=== PATIENT | male | born 1945 | race Caucasian/White ===

== ENCOUNTER 2022-01-27 15:21 | Inpatient (IN) ==
[2022-01-27] MEDS ORDERED: IOPAMIDOL 100 ML BOTTLE IV ONE (15:22)
[2022-01-27] MEDS ORDERED: 0.9 % SODIUM CHLORIDE 1,000 ML IV ONE ×3 (15:49→22:34)
[2022-01-27] MEDS ORDERED: ONDANSETRON 4 MG/2 ML VIAL IV ONE ×2 (15:49→20:38)
[2022-01-27 16:10] LABS: POC Calcium, Ionized 1.89 (1.16-1.32); POC Creatinine 1.7 (0.6-1.2); POC Potassium 4.3 (3.3-5.1)
--- NOTE | 2022-01-27 16:27 | XRay Report ---
INDICATION: constipation TECHNIQUE: Supine abdomen. COMPARISON: Previous CT scan dated 12/27/2021. Previous spot films dated 12/30/2021 FINDINGS:There is a left ureteral stent. This has changed in position since previous spot films during placement. The distal tip of the stent catheter is now projected over the sacrum, cephalad to the prior position. This may be within the distal left ureter rather than in the urinary bladder. The course of the left ureteral stent is markedly tortuous. Bowel gas pattern is unremarkable. No other focal abnormality IMPRESSION: 1. Left ureteral stent. Distal portion of the stent is cephalad to the expected location within the deep pelvis 2. Position has changed since previous spot films demonstrated 12/30/2021 Interpreted and Authenticated by: Toan Sheikh 01/27/22
[2022-01-27 16:38] LABS: Basophils # (Auto) 0.06 K/mcL (0.00-0.30); Basophils % (Auto) 0.6 % (0.0-2.0); Eosinophils # (Auto) 0.09 K/mcL (0.00-0.70); Eosinophils % (Auto) 0.8 % (0.0-7.0); Hematocrit 37.7 % (40.1-51.0); Hemoglobin 13.6 g/dL (13.7-17.5); Lymphocytes % (Auto) 9.2 % (15.5-49.0); Mean Cell Volume 83.2 fL (80.0-100.0); Mean Corpuscular HGB Conc 36.1 g/dL (31.0-36.0); Mean Platelet Volume 9.6 fL (7.4-10.4); Monocytes # (Auto) 0.95 K/mcL (0.10-0.90); Monocytes % (Auto) 8.8 % (1.0-12.0); Neutrophils % (Auto) 79.9 % (38.0-78.0); Platelet Count 255 K/mcL (140-440); RBC 4.53 M/mcL (4.63-6.08); Red Cell Distribution Width 12.6 % (11.5-14.5); WBC 10.9 K/mcL (4.5-11.0)
[2022-01-27] MEDS ORDERED: fentaNYL 25 MCG PATCH TOPICAL ONE (17:27)
[2022-01-27] MEDS ORDERED: morphine 4 MG/ML VIAL IV ONE (17:28)
[2022-01-27] MEDS ORDERED: METHYLNALTREXONE BROMIDE 12 MG/0.6 ML SYRINGE SC SCH (17:30)
--- NOTE | 2022-01-27 18:31 | Emergency Department Note ---
HPI General Chief complaint: Weakness Stated complaint: N/V Time Seen by Provider: 01/27/22 15:38 Source: family Mode of arrival: wheelchair Limitations: no limitations History of Present Illness HPI Narrative: This a 77-year-old male patient who presents with intractable nausea and vomiting over the last week, dehydration, and abdominal pain. 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 He underwent a cystoscopy and placement of a left ureteral stent on 12/30, and he has surgery scheduled with Dr. Crespo to remove the kidney and ureter on 02/06/2022. Patient states that he is been having abdominal pain since early December. He does have frequent urination, but no tevin hematuria or dysuria. His abdominal pain has been gradually worsening over the last few weeks and he has been increasing his hydrocodone from 5 mg to 7.5 mg to 10 mg every 4 hours for the past week. He has not had a bowel movement for 3 days and has been taking a regular bowel regimen 3 times daily. He is passing flatus. He denies F/C/S. He denies previous abdominal surgeries. Related Data Home Medications Medication Instructions Recorded Confirmed multivitamin 1 tab-cap PO QDAY 02/04/17 01/27/22 cetirizine [24Hour Allergy] 1 tab PO QDAY 02/14/21 01/27/22 alpha lipoic acid 600 mg capsule 600 mg PO QAM 12/30/21 01/27/22 [id number] 250 1 tab PO ONCE PRN HEADACHES 12/30/21 01/27/22 mg-250 mg-65 mg tablet (Excedrin Extra Strength) magnesium 1 tab PO DAILY 12/30/21 01/27/22 Previous Rx's Medication Instructions Recorded tamsulosin 0.4 mg capsule 0.8 mg PO QHS #180 caps 11/26/21 metoprolol tartrate 25 mg tablet 25 mg PO BID #180 tabs 12/08/21 omeprazole 20 mg capsule,delayed 20 mg PO QAM #90 caps 12/08/21 release simvastatin 10 mg tablet 10 mg PO QHS #90 tabs 12/08/21 hydrocodone 10 mg-acetaminophen 1 tab PO Q6H PRN pain #12 tabs 01/26/22 325 mg tablet fentanyl 25 mcg/hr transdermal 1 patch transdermal Q72H #5 ea 01/27/22 patch hydrocodone 5 mg-acetaminophen 325 1 tab PO Q4H PRN pain #30 tabs 01/27/22 mg tablet Allergies Allergy/AdvReac Type Severity Reaction Status Date / Time No Known Drug Allergies Allergy Verified 01/27/22 15:25 Review of Systems ROS ROS Narrative: Narrative: All systems ED: reviewed and negative except as stated. [facility] Narrative Patient History Narrative: Narrative: Medical/Surgical/Family History All Active Problems Cancer associated pain (Acute) Constipation due to opioid therapy (Acute) Intractable nausea and vomiting (Acute) Hyponatremia (Chronic) Arthritis of both hands (Chronic) Low back pain (Chronic ~2003) Hypertension, essential (Chronic) Borderline hyperlipidemia (Chronic ~2011) Major depressive disorder (Chronic) Anxiety (Chronic) Right leg pain (Chronic) Right leg numbness (Chronic) Right leg weakness (Chronic) HLD (hyperlipidemia) (Chronic) Insomnia (Chronic) Chronic radicular cervical pain (Chronic) Hematuria (Acute) Medicare annual wellness visit, initial (Acute) Radiculopathy, cervical region (Acute) Hematuria (Acute) Eustachian tube dysfunction (Acute) History of colonic polyps (Acute) TMJ (sprain of temporomandibular joint) (Acute) Eczema (Acute) Hemorrhagic otitis externa of right ear (Acute) Medicare annual wellness visit, subsequent (Acute) BPH w urinary obs/LUTS (Acute) Elevated serum creatinine (Acute) Hematuria (Acute) Ureteral mass (Acute) Left lateral abdominal pain (Acute) Hydronephrosis of left kidney (Acute) Ureteral cancer (Acute) Acute kidney injury (Acute) Hepatitis B surface antigen positive (Acute) Suprapubic pain (Acute) Loss of appetite (Acute) Medical History Arthritis of both hands Borderline hyperlipidemia (~2011) Hemorrhagic otitis externa of right ear Hypertension, essential Low back pain (~2003) Work comp. related Medicare annual wellness visit, initial Medicare annual wellness visit, subsequent Right leg numbness Right leg pain Right leg weakness Surgical History H/O colonoscopy H/O right knee surgery (~1984) Family History Sister Breast cancer Unknown Hypertension, essential Social History Smoking Status: Never smoker Alcohol Intake Frequency: does not drink Substance Use: does not use Exam Narrative Narrative: General: AOx3, NAD, painful appearing. Pleasant and conversant. HEENT: PERRL, EOMI, normocephalic. Dry mucous membranes. Normal facies and normal dentition. Chest: Symmetric, no pain to palpation Respiratory: Lungs clear to auscultation bilaterally. No respiratory distress. Unlabored breathing. Heart: Regular rate and rhythm, no murmurs/clicks/rubs. Abdomen: Suprapubic discomfort, nondistended, hypoactive bowel tones. No organomegaly. Extremities: Warm and well perfused. No edema. DP 2+ bilaterally. No venous stasis. Neuro: No focal deficits. Cranial nerves II-XII grossly normal. Skin: Warm dry, no rashes or lesions, no cyanosis. 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 I have discussed this case with his primary care provider, Dr. Hines, who agrees that the patient has poorly controlled pain. We discussed starting a 25 mcg fentanyl patch with hydrocodone for breakthrough pain. I have ordered the fentanyl patch and we will place it here today. In addition, I have reached out to clinical social work to make a referral for home health. Patient's son is his primary caregiver and he will be leaving out of town on for a 4-day trip to [place]. There is some concern about caregiver needs when he is gone given that his father has had worsening symptoms in the last week. Time: 07:10 Reevaluation #3: Patient started having chest pain while ambulating back to the bathroom. EKG shows normal sinus rhythm with rate of [address] segment deviations to suggest ischemia. He does have a first-degree AV block noted. QTC is 468 ms. A traoc-sk-jebo troponin is 0.01. The plan will be to trend this. Time: 08:20 Additional Reevaluation(s): Patient's chest pain is completely resolved. IV Dilaudid has been effective in treating his pain and he is no longer having significant suprapubic pain. Nausea has resolved. Vital signs are currently stable. Vital Signs Vital signs: Vital Signs Temperature 97.3 F 01/27/22 15:22 Pulse Rate 83 01/27/22 15:22 Respiratory Rate 17 01/27/22 15:22 Blood Pressure 131/70 01/27/22 15:22 Pulse Oximetry (%) 98 01/27/22 15:22 Oxygen Delivery Method 01/27/22 15:22 Temperature 97.9 F 01/28/22 02:48 Pulse Rate 71 01/28/22 02:48 Respiratory Rate 20 01/28/22 02:48 Blood Pressure 133/67 01/28/22 02:48 Pulse Oximetry (%) 92 01/28/22 02:48 Oxygen Delivery Method 01/28/22 02:48 [facility] MDM Narrative Medical decision making narrative: Cancer pain Intractable nausea and vomiting Dehydration Ureteral carcinoma Severe left hydronephrosis with stent placement Hyponatremia Hypercalcemia Patient's pain is currently controlled after placement of his fentanyl patch and 1 mg of IV Dilaudid. He is no longer endorsing chest pain or nausea. He has been given 2 L of IV fluids. Bladder scans have showed low post residual void. CT scan of the abdomen pelvis with and without contrast shows suspicious metastatic lesions to his lungs. I have informed the patient of these results. The patient's troponin is trending and is ordered for a 10 PM draw. I have signed the patient out to Dr. Kimbrough at change of shift, please see his note for further details and plan of care. Lab Data Result diagrams: 01/27/22 15:59 Labs: Lab Results 01/27/22 01/27/22 01/27/22 Range/Units 15:59 16:06 19:40 WBC 10.9 (4.5-11.0) K/mcL RBC 4.53 L (4.63-6.08) M/mcL Hgb 13.6 L (13.7-17.5) g/dL Hct 37.7 L (40.1-51.0) % POC Hct 39.0 L (41-55) MCV 83.2 (80.0-100.0) fL MCH 30.0 (26.0-34.0) pg MCHC 36.1 H (31.0-36.0) g/dL RDW 12.6 (11.5-14.5) % Plt Count 255 (140-440) K/mcL MPV 9.6 (7.4-10.4) fL Immature Gran % (Auto) 0.7 H (0.0-0.5) % Neut % (Auto) 79.9 H (38.0-78.0) % Lymph % (Auto) 9.2 L (15.5-49.0) % Faulk % (Auto) 8.8 (1.0-12.0) % Eos % (Auto) 0.8 (0.0-7.0) % Baso % (Auto) 0.6 (0.0-2.0) % Lymph # (Auto) 1.00 L (1.50-4.80) K/mcL Faulk # (Auto) 0.95 H (0.10-0.90) K/mcL Eos # (Auto) 0.09 (0.00-0.70) K/mcL Baso # (Auto) 0.06 (0.00-0.30) K/mcL Immature Gran # 0.08 H (0.00-0.05) K/mcl Absolute Neutrophils 8.75 H (1.80-8.00) K/mcL POC Sodium 125 L (133-145) POC Potassium 4.3 (3.3-5.1) POC Chloride 93 L (96-108) POC Total CO2 23.0 (22-30) POC BUN 24 H (6-20) POC Creatinine 1.7 H (0.6-1.2) POC Glucose 135 H (70-105) Osmolality (280-300) mOSM/kg POC WB Ioniz Calcium 1.89 H* (1.16-1.32) TSH (0.27-5.01) uIU/mL POC Troponin I 0.01 L (0.02-0.08) 01/27/22 01/27/22 01/27/22 Range/Units 20:10 22:17 22:22 WBC (4.5-11.0) K/mcL RBC (4.63-6.08) M/mcL Hgb (13.7-17.5) g/dL Hct (40.1-51.0) % POC Hct 36.0 L (41-55) MCV (80.0-100.0) fL MCH (26.0-34.0) pg MCHC (31.0-36.0) g/dL RDW (11.5-14.5) % Plt Count (140-440) K/mcL MPV (7.4-10.4) fL Immature Gran % (Auto) (0.0-0.5) % Neut % (Auto) (38.0-78.0) % Lymph % (Auto) (15.5-49.0) % Faulk % (Auto) (1.0-12.0) % Eos % (Auto) (0.0-7.0) % Baso % (Auto) (0.0-2.0) % Lymph # (Auto) (1.50-4.80) K/mcL Faulk # (Auto) (0.10-0.90) K/mcL Eos # (Auto) (0.00-0.70) K/mcL Baso # (Auto) (0.00-0.30) K/mcL Immature Gran # (0.00-0.05) K/mcl Absolute Neutrophils (1.80-8.00) K/mcL POC Sodium 126 L (133-145) POC Potassium 4.2 (3.3-5.1) POC Chloride 95 L (96-108) POC Total CO2 24.0 (22-30) POC BUN 26 H (6-20) POC Creatinine 1.7 H (0.6-1.2) POC Glucose 133 H (70-105) Osmolality 273 L (280-300) mOSM/kg POC WB Ioniz Calcium 1.76 H* (1.16-1.32) TSH 1.50 (0.27-5.01) uIU/mL POC Troponin I 0.02 (0.02-0.08) Discharge Plan Patient/Caregiver Discharge Instructions Pt seen by NITROGEN OPERATOR/PA only: Yes Clinical Impression: Cancer associated pain, Constipation due to opioid therapy, Intractable nausea and vomiting Patient Disposition: Xfer As Outpt/Obs ([facility]) Condition: Fair Discharge Date/Time: 01/27/22 23:28
--- NOTE | 2022-01-27 18:38 | Cat Scan Report ---
INDICATION: abd pain COMPARISON: Comparison examinations dated 12/27/2021, 12/23/2021 TECHNIQUE: Pre and postcontrast axial images were obtained through the abdomen and pelvis. Sagittally and coronally reformatted images. 90 mL contrast material injected intravenously. Precontrast, portal venous phase, and delayed phase imaging FINDINGS: Lung bases:Lung bases are abnormal. There is bilateral lower lobe bronchiectasis which is chronic. There are multiple noncalcified pulmonary parenchymal nodules at the lung bases, left worse than right. Findings are suspicious for metastases. Largest nodule measures 9 mm in the left lower lobe. This is identified on image 7 and is mildly spiculated. There is a 2 cm mass at the left base. This appears to be mediastinal and is consistent with a focal lymph node. There is a low density center consistent with necrosis. There is a second similar-appearing paraesophageal density which measures 15 mm identified on image 17/206. There is a 9 mm paraesophageal lymph node on image 35/ There is a pleural-based 14 mm density at the right lung base, image 27. These findings are suspicious for metastases and have developed since 12/27/2021 Liver:Low-density liver consistent with hepatic steatosis. No focal mass. Liver contour is smooth Gallbladder, bilary:Gallbladder is distended. No calcified gallstones. No pericholecystic fluid. No dilated bile ducts Spleen:No splenomegaly. Normal enhancement of splenic and portal veins Pancreas:No pancreatic mass. No peripancreatic abnormality Adrenal glands:Negative Kidneys,ureters,bladder:Negative right kidney. No hydronephrosis. No solid or cystic mass. There is left hydronephrosis. Left renal pelvis is markedly dilated. The left ureter is tortuous and dilated. There is a left ureteral stent in place. Proximal portion of the stent is within the left renal pelvis. Distal portion is in the ureter at the S2 level. This is approximately 10 cm proximal to the urinary bladder ureter is markedly dilated to this level. There is abnormal soft tissue density suspicious for transitional cell carcinoma of the distal left ureter. There may be a small polypoid lesion at the left ureteral trigone, also suspicious for malignancy. Gastrointestinal:No detectable colonic mass. There is no diverticulitis. Negative small bowel. No mechanical small bowel obstruction. No bowel wall thickening. No focal abnormality. Negative stomach and duodenum. No focal abnormality. Appendix: The appendix is negative Vascular:Normal abdominal aorta. No abdominal aortic aneurysm. Superior mesenteric artery and celiac trunk are normal. Inferior mesenteric artery is normally opacified Lymphatic:Extensive retroperitoneal, para-aortic lymphadenopathy. There is retrocrural para-aortic adenopathy. There is a 14 mm left iliac chain node. Iliac chains are otherwise negative. No definite pathologic inguinal adenopathy Mesentery, peritoneum:No intra-abdominal abscess. No free fluid Reproductive:Prostate is not significantly enlarged Musculoskeletal:No lumbar compression fractures. There is degenerative disc disease No anterior abdominal wall or inguinal hernia. IMPRESSION: 1. Left ureteral stent with its distal tip in the distal left ureter, approximately 10 cm from the bladder 2. Severe left hydronephrosis and hydroureter. Findings consistent with distal left ureteral mass. Possible small mass at the left ureteral trigone. Findings are consistent with transitional cell carcinoma 3. Multiple noncalcified parenchymal nodules in both lung bases. Findings are new and consistent with metastases. 4. Inferior mediastinal and paraesophageal adenopathy. Small pleural based mass at the left lung base. Findings are suspicious for metastases 5. Extensive retroperitoneal adenopathy, new. This is para-aortic and retrocrural. There is a single left iliac chain node The exam was performed using radiation dose optimization techniques including, but not limited to, automated exposure control, adjustment of the mA and/or kV according to patient size and use of iterative reconstruction technique. Interpreted and Authenticated by: Toan Sheikh 01/27/22
[2022-01-27] MEDS ORDERED: HYDROmorphone 1 MG/ML SYRINGE IV ONE (19:25)
[2022-01-27] MEDS ORDERED: ACETAMINOPHEN 1,000 MG/100 ML BAG IV ONE (19:51)
[2022-01-27 20:48] LABS: Thyroid Stimulating Hormone 1.5 uIU/mL (0.27-5.01)
--- NOTE | 2022-01-27 21:34 | Emergency Department Note ---
Course Course Course Narrative: Patient signed out to me pending delta troponin. Delta troponin is negative. Patient was given IV fluids and his sodium was rechecked it is slightly improving. I suspect his hyponatremia is from decreased oral intake. Patient's pain did improve with IV pain medications. Patient's calcium is also found to be elevated. His electrolyte disturbances could be contributing to his overall weakness. Patient lives alone this point in time he is not safe to take care of himself and he expresses that this and family expresses the same concerns. Patient will greatly benefit from IV hydration and transition from IV pain medications to p.o. medications. Vital Signs Vital signs: Vital Signs Temperature 97.3 F 01/27/22 15:22 Pulse Rate 83 01/27/22 15:22 Respiratory Rate 17 01/27/22 15:22 Blood Pressure 131/70 01/27/22 15:22 Pulse Oximetry (%) 98 01/27/22 15:22 Oxygen Delivery Method 01/27/22 15:22 Temperature 97.3 F 01/27/22 15:22 Pulse Rate 80 01/27/22 23:00 Respiratory Rate 12 01/27/22 22:31 Blood Pressure 134/58 01/27/22 23:00 Pulse Oximetry (%) 95 01/27/22 23:00 Oxygen Delivery Method 01/27/22 15:22 MDM MDM Narrative Medical decision making narrative: Narrative: Lab Data Result diagrams: 01/27/22 15:59 Labs: Lab Results 01/27/22 01/27/22 01/27/22 Range/Units 15:59 16:06 19:40 WBC 10.9 (4.5-11.0) K/mcL RBC 4.53 L (4.63-6.08) M/mcL Hgb 13.6 L (13.7-17.5) g/dL Hct 37.7 L (40.1-51.0) % POC Hct 39.0 L (41-55) MCV 83.2 (80.0-100.0) fL MCH 30.0 (26.0-34.0) pg MCHC 36.1 H (31.0-36.0) g/dL RDW 12.6 (11.5-14.5) % Plt Count 255 (140-440) K/mcL MPV 9.6 (7.4-10.4) fL Immature Gran % (Auto) 0.7 H (0.0-0.5) % Neut % (Auto) 79.9 H (38.0-78.0) % Lymph % (Auto) 9.2 L (15.5-49.0) % Camp % (Auto) 8.8 (1.0-12.0) % Eos % (Auto) 0.8 (0.0-7.0) % Baso % (Auto) 0.6 (0.0-2.0) % Lymph # (Auto) 1.00 L (1.50-4.80) K/mcL Camp # (Auto) 0.95 H (0.10-0.90) K/mcL Eos # (Auto) 0.09 (0.00-0.70) K/mcL Baso # (Auto) 0.06 (0.00-0.30) K/mcL Immature Gran # 0.08 H (0.00-0.05) K/mcl Absolute Neutrophils 8.75 H (1.80-8.00) K/mcL POC Sodium 125 L (133-145) POC Potassium 4.3 (3.3-5.1) POC Chloride 93 L (96-108) POC Total CO2 23.0 (22-30) POC BUN 24 H (6-20) POC Creatinine 1.7 H (0.6-1.2) POC Glucose 135 H (70-105) Osmolality (280-300) mOSM/kg POC WB Ioniz Calcium 1.89 H* (1.16-1.32) TSH (0.27-5.01) uIU/mL POC Troponin I 0.01 L (0.02-0.08) 01/27/22 01/27/22 01/27/22 Range/Units 20:10 22:17 22:22 WBC (4.5-11.0) K/mcL RBC (4.63-6.08) M/mcL Hgb (13.7-17.5) g/dL Hct (40.1-51.0) % POC Hct 36.0 L (41-55) MCV (80.0-100.0) fL MCH (26.0-34.0) pg MCHC (31.0-36.0) g/dL RDW (11.5-14.5) % Plt Count (140-440) K/mcL MPV (7.4-10.4) fL Immature Gran % (Auto) (0.0-0.5) % Neut % (Auto) (38.0-78.0) % Lymph % (Auto) (15.5-49.0) % Camp % (Auto) (1.0-12.0) % Eos % (Auto) (0.0-7.0) % Baso % (Auto) (0.0-2.0) % Lymph # (Auto) (1.50-4.80) K/mcL Camp # (Auto) (0.10-0.90) K/mcL Eos # (Auto) (0.00-0.70) K/mcL Baso # (Auto) (0.00-0.30) K/mcL Immature Gran # (0.00-0.05) K/mcl Absolute Neutrophils (1.80-8.00) K/mcL POC Sodium 126 L (133-145) POC Potassium 4.2 (3.3-5.1) POC Chloride 95 L (96-108) POC Total CO2 24.0 (22-30) POC BUN 26 H (6-20) POC Creatinine 1.7 H (0.6-1.2) POC Glucose 133 H (70-105) Osmolality 273 L (280-300) mOSM/kg POC WB Ioniz Calcium 1.76 H* (1.16-1.32) TSH 1.50 (0.27-5.01) uIU/mL POC Troponin I 0.02 (0.02-0.08) Discharge Plan Patient/Caregiver Discharge Instructions Pt seen by LINEN WORKER/PA only: Yes Clinical Impression: Cancer associated pain, Constipation due to opioid therapy, Intractable nausea and vomiting Instructions: Constipation (DC), Pain Management (ED), Acute Nausea and Vomiting (ED), Opioid Safety (ED) Activity Restrictions/Additional Instructions: You were seen and evaluated for acute nausea and vomiting and uncontrolled pain secondary to your new diagnosis of urological cancer. In addition, I think that you are having symptoms related to narcotics. Nausea, vomiting, and constipatio n are all side effects of narcotics. You were given a medication to counteract opioid-induced constipation here. You were also given antinausea medication to help with the effects of your narcotics. I discussed your uncontrolled pain with Dr. Hines who agreed that starting a fentanyl patch to better control your pain is appropriate. You are placed on a 25 mcg patch of fentanyl, which is supposed to be changed every 3 days. In addition, you were given a prescription for hydrocodone 5/325 mg tabs that you can take as needed for breakthrough pain every 4 hours. I advised that you continue with your bowel regimen and try to stay hydrated as this will prevent constipation. I recommend taking MiraLAX 17 g daily from here on out to prevent worsening constipation. You can hold this if you are having loose stools. If you continue to have nausea and vomiting and poorly controlled pain then you would need to return to the ER for reevaluation. I have made referral to home health nursing so that they can check in on you over the next week to assure that your pain is controlled and you are staying hydrated. They would likely follow with you after your surgery. Patient Disposition: Xfer As Outpt/Obs ([facility]) Condition: Fair Follow up with: Toan Hines DO [Primary Care Provider] - Prescriptions: New fentanyl 25 mcg/hr patch 72 hour 1 patch transdermal Q72H Qty: 5 0RF hydrocodone-acetaminophen 5-325 mg tablet 1 tab PO Q4H PRN (Reason: pain) Qty: 30 0RF Rx Instructions: Take 1-2 tabs every 4 hours for breakthrough pain No Action simvastatin 10 mg tablet 10 mg PO QHS Qty: 90 3RF omeprazole 20 mg capsule,delayed release(DR/EC) 20 mg PO QAM Qty: 90 3RF metoprolol tartrate 25 mg tablet 25 mg PO BID Qty: 180 3RF hydrocodone-acetaminophen 10-325 mg tablet 1 tab PO Q6H PRN (Reason: pain) Qty: 12 0RF multivitamin tablet 1 tab-cap PO QDAY cetirizine [24Hour Allergy] 1 tab PO QDAY tamsulosin 0.4 mg capsule 0.8 mg PO QHS Qty: 180 1RF magnesium Tablet 1 tab PO DAILY alpha lipoic acid 600 mg Capsule 600 mg PO QAM Excedrin Extra Strength 250-250-65 mg Tablet 1 tab PO ONCE PRN (Reason: HEADACHES)
[2022-01-27 22:27] LABS: POC Calcium, Ionized 1.76 (1.16-1.32); POC Creatinine 1.7 (0.6-1.2); POC Potassium 4.2 (3.3-5.1)
[2022-01-27] MEDS: 0.9 % SODIUM CHLORIDE 1,000 ML IV SCH (23:52)
[2022-01-28] MEDS: HYDROmorphone 0.5 MG/0.5 ML SYRINGE IV PRN ×11 (00:15→23:21)
[2022-01-28 00:27] LABS: Appearance,Urine CLEAR (Clear); Bilirubin,Urine Negative (Negative); Color,Urine YELLOW; Culture Indicated,Urine No; Glucose,Urine (UA) Negative (Negative); Ketones,Urine 5 mg/dL (Negative); Leukocyte Esterase,Urine Negative /uL (Negative); Nitrate,Urine Negative (Negative); Protein,Urine Negative (Negative); Specific Gravity,Urine 1.033 (1.000-1.035); Urine Blood 0.03 mg/dL (Negative); Urine RBC 8 /hpf (0-3); Urine Squamous Epithelial Cell < 1 /hpf (0-4); Urine WBC 3 /hpf (0-4); Urobilinogen,Urine Negative
[2022-01-28 00:41] LABS: Osmolality,Urine 409 mOSM/kg (80-1000); Sodium, Urine Random 41 mmol/L
[2022-01-28] MEDS: 0.9 % SODIUM CHLORIDE 1,000 ML IV SCH (05:04)
[2022-01-28] MEDS ORDERED: BISACODYL 10 MG SUPP.RECT PR PRN (07:43)
[2022-01-28] MEDS ORDERED: MAGNESIUM HYDROXIDE 30 ML ORAL.SUSP PO PRN (07:43)
[2022-01-28] MEDS ORDERED: ONDANSETRON 4 MG/2 ML VIAL IV PRN (07:43)
[2022-01-28] MEDS: DOCUSATE SODIUM 100 MG CAPSULE PO SCH ×2 (08:38→20:08)
[2022-01-28] MEDS: ENOXAPARIN 40 MG/0.4 ML SYRINGE SQ SCH (08:38)
--- NOTE | 2022-01-28 09:49 | EKG ---
[facility] Test Date: 2022-01-27 Pat Name: Joshua Lynch Department: ED Room: Gender: Male Assistant Restaurant General Manager: JOSE G : 1945 Requested By: Sho Almeida Order Number: [id number] Reading MD: Toan Goldman M.D. Measurements Intervals [place] Rate: 81 P: 30 MO: 206 QRS: -6 QRSD: 91 T: 16 QT: 403 QTc: 468 Interpretive Statements Sinus rhythm Electronically Signed On 01-28-2022 9:49:03 PDT by Toan Goldman M.D. /store/M0/[id number]
[2022-01-28] MEDS: LACTATED RINGERS 1,000 ML IV SCH ×2 (10:18→23:21)
--- NOTE | 2022-01-28 11:30 | Internal Med History&Physical ---
HPI History of Present Illness Patient information: Note initiated : 01/28/22 at 11:23 am Service Date, if different from initiated Date: [] Patient: Joshua Lynch 77 y/o M admitted on 01/28/22 for N/V. Chief Complaint: [Intractable pain] Chief complaint: Pain History of present illness: Mr. Lynch is a 77 year old M with a past medical history significant for hypertension, hyperlipidemia, and BPH who presents to the hospital with 2-month history of progressive pain that has now become intractable. The patient states that he has been battling with abdominal and groin discomfort since beginning of December. Unfortunately he was not able to see his primary care physician for some time. He was scheduled to see a business operations consultant yesterday who advised him to go to the ER for further management and evaluation of his severe pain. Of note, the patient lives alone. He states that there were some nights where he would hope that he would pass away so he would not have to suffer excruciating pain. He had been followed by outpatient urology and was scheduled for debulking surgery in February that was recently moved up to February 06. However on presentation CT abdomen and pelvis revealed extensive metastatic disease. 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 He is not followed up with an oncologist at this time yet. The hospitalist service was asked admit the patient for pain control. Final Diagnosis Specimen A- URETER, LEFT, BIOPSY: --- HIGH GRADE PAPILLARY UROTHELIAL CARCINOMA, SUSPICIOUS FOR INVASION, SEE COMMENT. --- MUSCULARIS PRESENT. (RLF) EXTERNAL COMMENT The biopsy shows fragmenting high grade papillary urothelial carcinoma in association with smooth muscle (highlighted by immunohistochemistry for pancytokeratin and SM-MHC), suspicious for invasion. Microscopic Description Immunohistochemical studies are performed. Pancytokeratin: Highlights tumor cells. SM-MHC: Muscularis present. Interpretation: Suspicious for invasion. Gross Description Received in formalin labeled left ureter biopsy, are three fragments of elias-caballero tissue ranging in size from less than 0.1 up to 0.1 cm in greatest dimension. Totally submitted in one cassette. (KGW:brian) IMPRESSION: 1. Left ureteral stent with its distal tip in the distal left ureter, approximately 10 cm from the bladder 2. Severe left hydronephrosis and hydroureter. Findings consistent with distal left ureteral mass. Possible small mass at the left ureteral trigone. Findings are consistent with transitional cell carcinoma 3. Multiple noncalcified parenchymal nodules in both lung bases. Findings are new and consistent with metastases. 4. Inferior mediastinal and paraesophageal adenopathy. Small pleural based mass at the left lung base. Findings are suspicious for metastases 5. Extensive retroperitoneal adenopathy, new. This is para-aortic and retrocrural. There is a single left iliac chain node Review of Systems All systems: reviewed and no additional remarkable complaints except as stated Constitutional Constitutional: Present as per HPI EENT Eyes: Present as per HPI; Absent blurry vision Cardiovascular Cardiovascular: Present as per HPI; Absent chest pain, dyspnea, dyspnea on exertion, leg edema or palpatations Respiratory Respiratory: Present as per HPI; Absent cough, dyspnea, dyspnea on exertion, wheezing or stridor Gastrointestinal Gastrointestinal: Present as per HPI and abdominal pain; Absent diarrhea, dysphagia, hematemesis, melena, nausea or vomiting Musculoskeletal Musculoskeletal: Present as per HPI; Absent joint swelling, limited range of motion, muscle cramps, muscle weakness or myalgias Integumentary Integumentary: Present as per HPI; Absent erythema, new lesions, rash or wounds Neurological Neurological: Present as per HPI; Absent abnormal gait, behavioral changes, focal weakness, headache(s), loss of vision, numbness, sensory deficit or syncope Endocrine Endocrine: Absent change in body appearance, fatigue or heat intolerance Hematologic/Lymphatic Hematologic/Lymphatic: Present as per HPI PFSH PFSH All Active Problems (Updated 01/28/22 @ 11:29 by Allan Anderson MD) Cancer associated pain (Acute) Constipation due to opioid therapy (Acute) Intractable nausea and vomiting (Acute) Hyponatremia (Chronic) Arthritis of both hands (Chronic) Low back pain (Chronic ~2004) Hypertension, essential (Chronic) Borderline hyperlipidemia (Chronic ~2012) Major depressive disorder (Chronic) Anxiety (Chronic) Right leg pain (Chronic) Right leg numbness (Chronic) Right leg weakness (Chronic) HLD (hyperlipidemia) (Chronic) Insomnia (Chronic) Chronic radicular cervical pain (Chronic) Hematuria (Acute) Medicare annual wellness visit, initial (Acute) Radiculopathy, cervical region (Acute) Hematuria (Acute) Eustachian tube dysfunction (Acute) History of colonic polyps (Acute) TMJ (sprain of temporomandibular joint) (Acute) Eczema (Acute) Hemorrhagic otitis externa of right ear (Acute) Medicare annual wellness visit, subsequent (Acute) BPH w urinary obs/LUTS (Acute) Elevated serum creatinine (Acute) Hematuria (Acute) Ureteral mass (Acute) Left lateral abdominal pain (Acute) Hydronephrosis of left kidney (Acute) Ureteral cancer (Acute) Acute kidney injury (Acute) Hepatitis B surface antigen positive (Acute) Suprapubic pain (Acute) Loss of appetite (Acute) Medical History Arthritis of both hands Borderline hyperlipidemia (~2011) Hemorrhagic otitis externa of right ear Hypertension, essential Low back pain (~2003) Work comp. related Medicare annual wellness visit, initial Medicare annual wellness visit, subsequent Right leg numbness Right leg pain Right leg weakness Surgical History H/O colonoscopy H/O right knee surgery (~1984) Family History Sister Breast cancer Unknown Hypertension, essential Social History marital status: smoking status: Never smoker alcohol intake frequency: does not drink substance use type: does not use MEDS/ALLERGIES Home Medications and Allergies Home Medications Medication Instructions Recorded Confirmed Type multivitamin 1 tab-cap PO QDAY 02/04/17 01/27/22 History cetirizine [24Hour Allergy] 1 tab PO QDAY 02/14/21 01/27/22 History tamsulosin 0.4 mg capsule 0.8 mg PO QHS #180 caps 11/26/21 01/27/22 Rx metoprolol tartrate 25 mg tablet 25 mg PO BID #180 tabs 12/08/21 01/27/22 Rx omeprazole 20 mg capsule,delayed 20 mg PO QAM #90 caps 12/08/21 01/27/22 Rx release simvastatin 10 mg tablet 10 mg PO QHS #90 tabs 12/08/21 01/27/22 Rx alpha lipoic acid 600 mg capsule 600 mg PO QAM 12/30/21 01/27/22 History aynkpod-epbuxtcssjuzp-kmlqftmf 250 1 tab PO ONCE PRN HEADACHES 12/30/21 01/27/22 History mg-250 mg-65 mg tablet (Excedrin Extra Strength) magnesium 1 tab PO DAILY 12/30/21 01/27/22 History hydrocodone 10 mg-acetaminophen 1 tab PO Q6H PRN pain #12 tabs 01/26/22 01/27/22 Rx 325 mg tablet fentanyl 25 mcg/hr transdermal 1 patch transdermal Q72H #5 ea 01/27/22 Rx patch hydrocodone 5 mg-acetaminophen 325 1 tab PO Q4H PRN pain #30 tabs 01/27/22 Rx mg tablet Allergies Allergy/AdvReac Type Severity Reaction Status Date / Time No Known Drug Allergies Allergy Verified 01/27/22 15:25 EXAM Constitutional Vitals: Temp Pulse Resp BP Pulse Ox O2 Del Method 98.2 F 72 18 146/66 95 01/28/22 08:00 01/28/22 08:00 01/28/22 08:00 01/28/22 08:00 01/28/22 08:00 01/28/22 08:00 General appearance: average body habitus Head Head exam: Present atraumatic, normal inspection and normocephalic Eye Eye exam: Present EOMI, normal appearance and PERRL; Absent conjunctival injection ENT ENT exam: Present normal exam; Absent mucous membranes dry Neck Neck exam: Present full ROM; Absent lymphadenopathy Respiratory Respiratory exam: Present normal respiratory exam and CTAB; Absent decreased breath sounds, respiratory distress or wheezes Cardiovascular Cardiovascular exam: Present normal rate and rhythm and RRR; Absent JVD GI/Abdominal GI/Abdominal exam: Present normal bowel sounds and soft; Absent diminished bowel sounds, distended, guarding, mass, rebound or tenderness Neurological Exam Neurological exam: Present alert, CN II-XII intact and oriented X3 Psychiatric Psychiatric exam: Present normal affect and normal mood Skin Skin exam: Present intact and warm; Absent erythema, pallor, petechiae or rash DATA Data Completed and Pending Labs: Labs from last 24 hours 01/27/22 01/27/22 01/27/22 23:47 23:46 23:45 WBC RBC Hgb Hct POC Hct MCV MCH MCHC RDW Plt Count MPV Immature Gran % (Auto) Neut % (Auto) Lymph % (Auto) [place] % (Auto) Eos % (Auto) Baso % (Auto) Lymph # (Auto) [place] # (Auto) Eos # (Auto) Baso # (Auto) Immature Gran # Absolute Neutrophils POC Sodium POC Potassium POC Chloride POC Total CO2 POC BUN POC Creatinine POC Glucose Osmolality POC WB Ioniz Calcium TSH Urine Color Yellow Urine Appearance Clear Urine pH 6.0 Ur Specific [place] 1.033 Urine Protein Negative Urine Glucose (UA) Negative Urine Ketones 5 A Urine Occult Blood 0.03 Urine Nitrate Negative Urine Bilirubin Negative Urine Urobilinogen Negative Ur Leukocyte Esterase Negative Urine RBC 8 H Urine WBC 3 Ur Squamous Epith Cells < 1 Urine Bacteria None Ur Culture Indicated? No Urine Osmolality 409 Ur Random Creatinine 55.2 Ur Random Sodium 41 POC Troponin I 01/27/22 01/27/22 01/27/22 22:22 22:17 20:10 WBC RBC Hgb Hct POC Hct 36.0 L MCV MCH MCHC RDW Plt Count MPV Immature Gran % (Auto) Neut % (Auto) Lymph % (Auto) [place] % (Auto) Eos % (Auto) Baso % (Auto) Lymph # (Auto) [place] # (Auto) Eos # (Auto) Baso # (Auto) Immature Gran # Absolute Neutrophils POC Sodium 126 L POC Potassium 4.2 POC Chloride 95 L POC Total CO2 24.0 POC BUN 26 H POC Creatinine 1.7 H POC Glucose 133 H Osmolality 273 L POC WB Ioniz Calcium 1.76 H* TSH 1.50 Urine Color Urine Appearance Urine pH Ur Specific [place] Urine Protein Urine Glucose (UA) Urine Ketones Urine Occult Blood Urine Nitrate Urine Bilirubin Urine Urobilinogen Ur Leukocyte Esterase Urine RBC Urine WBC Ur Squamous Epith Cells Urine Bacteria Ur Culture Indicated? Urine Osmolality Ur Random Creatinine Ur Random Sodium POC Troponin I 0.02 01/27/22 01/27/22 01/27/22 19:40 16:06 15:59 WBC 10.9 RBC 4.53 L Hgb 13.6 L Hct 37.7 L POC Hct 39.0 L MCV 83.2 MCH 30.0 MCHC 36.1 H RDW 12.6 Plt Count 255 MPV 9.6 Immature Gran % (Auto) 0.7 H Neut % (Auto) 79.9 H Lymph % (Auto) 9.2 L [place] % (Auto) 8.8 Eos % (Auto) 0.8 Baso % (Auto) 0.6 Lymph # (Auto) 1.00 L [place] # (Auto) 0.95 H Eos # (Auto) 0.09 Baso # (Auto) 0.06 Immature Gran # 0.08 H Absolute Neutrophils 8.75 H POC Sodium 125 L POC Potassium 4.3 POC Chloride 93 L POC Total CO2 23.0 POC BUN 24 H POC Creatinine 1.7 H POC Glucose 135 H Osmolality POC WB Ioniz Calcium 1.89 H* TSH Urine Color Urine Appearance Urine pH Ur Specific [place] Urine Protein Urine Glucose (UA) Urine Ketones Urine Occult Blood Urine Nitrate Urine Bilirubin Urine Urobilinogen Ur Leukocyte Esterase Urine RBC Urine WBC Ur Squamous Epith Cells Urine Bacteria Ur Culture Indicated? Urine Osmolality Ur Random Creatinine Ur Random Sodium POC Troponin I 0.01 L A/P Assessment and plan (1) Cancer associated pain: Status: Acute (2) Constipation due to opioid therapy: Status: Acute (3) Intractable nausea and vomiting: Status: Acute (4) Hematuria: Status: Acute Qualifiers: Hematuria type: gross Qualified Code(s): R31.0 - Gross hematuria (5) Loss of appetite: Status: Acute (6) Suprapubic pain: Status: Acute Narrative A/P Narrative: The patient does have a tissue diagnosis of high-grade papillary urothelial carcinoma. He will need to follow-up with oncology for staging and will require a PET scan. Once staging is confirmed, a treatment plan can be formulated and he can be given a prognosis. It is unclear whether he will require chemotherapy with curative or palliative intent. Surgery will likely have to be delayed. At this time while he is inpatient, we will continue pain control. He has been started on a fentanyl patch and started on IV and oral narcotic analgesics which may be uptitrated. Continue aggressive bowel regimen. PT/OT will follow. Will be important to contact his primary care physician for safe discharge planning. Time Spent With Patient Time: Total time spent is greater than 50% in coordination of care (as documented) at patient's floor/unit and/or counseling patient: Total time spent with greater than 50% in coordination of care (as documented) at patient's floor/unit and/or counseling patient:: 50 - 70 minutes
[2022-01-28] MEDS: ONDANSETRON 4 MG/2 ML VIAL IV PRN ×3 (12:05→20:19)
[2022-01-28] MEDS: 0.9 % SODIUM CHLORIDE 10 ML SYRINGE IV SCH ×2 (12:42→20:08)
--- NOTE | 2022-01-28 16:14 | Urology Consult Note ---
HPI Data of Consult Patient: known to practice within the last 3 years Consult date: 01/28/22 Requesting physician: Allan Anderson Primary Care Provider: Toan Hines DO Consult Narrative Patient Information: Note initiated : 01/28/22 at 4:04 pm Service Date, if different from initiated Date: [] Patient: Joshua Lynch 77 y/o M admitted on 01/28/22 for N/V. Chief Complaint: Joshua is a 77-year-old male who is well-known to me. 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 This was on December 30, 2021. As result of the tumor he has obstruction of the left collecting system and severe left hydronephrosis. Left kidney was filled with either clot or tumor. Left ureteral stent was placed at the time of ureteroscopy on December 31. This initially provided some relief of pain but his pain began to get worse. Joshua was scheduled for a left nephroureterectomy on March 06. Due to his pain removed the surgery up to February 06. Yesterday he presented to the emergency department with decreased appetite and severe pain. CT of the abdomen and pelvis was obtained with and without contrast. This revealed multiple noncalcified pulmonary parenchymal nodules at the lung bases left worse than right. The findings are suspicious for metastatic disease. Largest nodule measured 9 mm in the left lower lobe. There was a 2 cm mass at the left base. This is consistent with a focal lymph node. There is a second similar-appearing paraesophageal density measuring 15 mm on image 17/206. There is also a 9 mm paraesophageal lymph node. These are all suspicious for metastatic disease. There is left hydronephrosis and the left renal pelvis is markedly dilated. Left ureter is tortuous and dilated. There is a left ureteral stent in place. The proximal portion of the stent is within the left renal pelvis. The distal portion is retracted into the left ureter at the level of S2 approximately 10 cm proximal to the left ureterovesical junction. There is extensive retroperitoneal and para-aortic lymphadenopathy. There is retrocrural para-aortic adenopathy. There is a 14 mm left iliac chain node. Iliac chains are otherwise negative. Chief complaint: Left flank pain Reason for consult: Metastatic urothelial carcinoma cc:: CC: Allan Anderson MD Constitutional Constitutional: Present lethargy, malaise, weakness and weight loss Gastrointestinal Gastrointestinal: Present abdominal pain, bloating, early satiety, nausea and vomiting PFSH PFSH All Active Problems Metastatic urothelial carcinoma (Acute) Hyponatremia (Chronic) Cancer associated pain (Acute) Constipation due to opioid therapy (Acute) Intractable nausea and vomiting (Acute) Loss of appetite (Acute) Suprapubic pain (Acute) Acute kidney injury (Acute) Hepatitis B surface antigen positive (Acute) Ureteral cancer (Acute) Arthritis of both hands (Chronic) Low back pain (Chronic ~2003) Hypertension, essential (Chronic) Borderline hyperlipidemia (Chronic ~2011) Major depressive disorder (Chronic) Anxiety (Chronic) Right leg pain (Chronic) Right leg numbness (Chronic) Right leg weakness (Chronic) HLD (hyperlipidemia) (Chronic) Insomnia (Chronic) Chronic radicular cervical pain (Chronic) Hematuria (Acute) Medicare annual wellness visit, initial (Acute) Radiculopathy, cervical region (Acute) Hematuria (Acute) Eustachian tube dysfunction (Acute) History of colonic polyps (Acute) TMJ (sprain of temporomandibular joint) (Acute) Eczema (Acute) Hemorrhagic otitis externa of right ear (Acute) Medicare annual wellness visit, subsequent (Acute) BPH w urinary obs/LUTS (Acute) Elevated serum creatinine (Acute) Hematuria (Acute) Ureteral mass (Acute) Left lateral abdominal pain (Acute) Hydronephrosis of left kidney (Acute) Medical History Arthritis of both hands Borderline hyperlipidemia (~2011) Hemorrhagic otitis externa of right ear Hypertension, essential Low back pain (~2003) Work comp. related Medicare annual wellness visit, initial Medicare annual wellness visit, subsequent Right leg numbness Right leg pain Right leg weakness Surgical History H/O colonoscopy H/O right knee surgery (~1984) Family History Sister Breast cancer Unknown Hypertension, essential Social History marital status: smoking status: Never smoker alcohol intake frequency: does not drink substance use type: does not use MEDS/ALLERGIES Home Medications and Allergies Home Medications Medication Instructions Recorded Confirmed Type multivitamin 1 tab-cap PO QDAY 02/04/17 01/27/22 History cetirizine [24Hour Allergy] 1 tab PO QDAY 02/14/21 01/27/22 History tamsulosin 0.4 mg capsule 0.8 mg PO QHS #180 caps 11/26/21 01/27/22 Rx metoprolol tartrate 25 mg tablet 25 mg PO BID #180 tabs 12/08/21 01/27/22 Rx omeprazole 20 mg capsule,delayed 20 mg PO QAM #90 caps 12/08/21 01/27/22 Rx release simvastatin 10 mg tablet 10 mg PO QHS #90 tabs 12/08/21 01/27/22 Rx alpha lipoic acid 600 mg capsule 600 mg PO QAM 12/30/21 01/27/22 History pflwkta-mcxhvfcmwuopa-xsbkhewy 250 1 tab PO ONCE PRN HEADACHES 12/30/21 01/27/22 History mg-250 mg-65 mg tablet (Excedrin Extra Strength) magnesium 1 tab PO DAILY 12/30/21 01/27/22 History hydrocodone 10 mg-acetaminophen 1 tab PO Q6H PRN pain #12 tabs 01/26/22 01/27/22 Rx 325 mg tablet fentanyl 25 mcg/hr transdermal 1 patch transdermal Q72H #5 ea 01/27/22 Rx patch hydrocodone 5 mg-acetaminophen 325 1 tab PO Q4H PRN pain #30 tabs 01/27/22 Rx mg tablet Allergies Allergy/AdvReac Type Severity Reaction Status Date / Time No Known Drug Allergies Allergy Verified 01/27/22 15:25 Physical Examination Vital Signs Vital signs: Temp Pulse Resp BP Pulse Ox O2 Del Method 97.7 F 100 H 18 131/66 93 01/28/22 12:00 01/28/22 12:00 01/28/22 12:00 01/28/22 12:00 01/28/22 12:00 01/28/22 12:00 General physical appearance General physical exam: well developed, moderate distress and moderate pain Eyes Eye exam: PERRL Head Head exam IM: Present atraumatic and normocephalic Neck Neck exam: trachea midline Respiratory Respiratory exam: normal expansion and normal respiratory effort Abdomen Abdomen: Present soft, bowel sounds and distended Psychiatric Psychiatric: Present oriented to time, oriented to person, oriented to place and speech is normal Results Labs Result diagrams: 01/27/22 15:59 01/29/22 05:33 Labs: Abnormal lab results 01/27/22 01/27/22 01/27/22 Range/Units 15:59 16:06 19:40 RBC 4.53 L (4.63-6.08) M/mcL Hgb 13.6 L (13.7-17.5) g/dL Hct 37.7 L (40.1-51.0) % POC Hct 39.0 L (41-55) MCHC 36.1 H (31.0-36.0) g/dL Immature Gran % (Auto) 0.7 H (0.0-0.5) % Neut % (Auto) 79.9 H (38.0-78.0) % Lymph % (Auto) 9.2 L (15.5-49.0) % Lymph # (Auto) 1.00 L (1.50-4.80) K/mcL [place] # (Auto) 0.95 H (0.10-0.90) K/mcL Immature Gran # 0.08 H (0.00-0.05) K/mcl Absolute Neutrophils 8.75 H (1.80-8.00) K/mcL POC Sodium 125 L (133-145) POC Chloride 93 L (96-108) POC BUN 24 H (6-20) POC Creatinine 1.7 H (0.6-1.2) POC Glucose 135 H (70-105) Osmolality (280-300) mOSM/kg POC WB Ioniz Calcium 1.89 H* (1.16-1.32) Urine Ketones (Negative) mg/dL Urine RBC (0-3) /hpf POC Troponin I 0.01 L (0.02-0.08) 01/27/22 01/27/22 01/27/22 Range/Units 20:10 22:22 23:45 RBC (4.63-6.08) M/mcL Hgb (13.7-17.5) g/dL Hct (40.1-51.0) % POC Hct 36.0 L (41-55) MCHC (31.0-36.0) g/dL Immature Gran % (Auto) (0.0-0.5) % Neut % (Auto) (38.0-78.0) % Lymph % (Auto) (15.5-49.0) % Lymph # (Auto) (1.50-4.80) K/mcL [place] # (Auto) (0.10-0.90) K/mcL Immature Gran # (0.00-0.05) K/mcl Absolute Neutrophils (1.80-8.00) K/mcL POC Sodium 126 L (133-145) POC Chloride 95 L (96-108) POC BUN 26 H (6-20) POC Creatinine 1.7 H (0.6-1.2) POC Glucose 133 H (70-105) Osmolality 273 L (280-300) mOSM/kg POC WB Ioniz Calcium 1.76 H* (1.16-1.32) Urine Ketones 5 A (Negative) mg/dL Urine RBC 8 H (0-3) /hpf POC Troponin I (0.02-0.08) Thyroid panel 01/27/22 Range/Units 20:10 TSH 1.50 (0.27-5.01) uIU/mL Pituitary panel 01/27/22 Range/Units 20:10 TSH 1.50 (0.27-5.01) uIU/mL All other labs normal. Imaging CT scan - abdomen: report reviewed and image reviewed CT scan - pelvis: report reviewed and image reviewed A/P Assessment and plan (1) Metastatic urothelial carcinoma: Status: Acute Plan Joshua is a 77-year-old male who is well-known to me. 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 This was on December 30, 2021. As result of the tumor he has obstruction of the left collecting system and severe left hydronephrosis. Left kidney was filled with either clot or tumor. Left ureteral stent was placed at the time of ureteroscopy on December 31. This initially provided some relief of pain but his pain began to get worse. Joshua was scheduled for a left nephroureterectomy on March 06. Due to his pain removed the surgery up to February 06. Yesterday he presented to the emergency department with decreased appetite and severe pain. CT of the abdomen and pelvis was obtained with and without contrast. This revealed multiple noncalcified pulmonary parenchymal nodules at the lung bases left worse than right. The findings are suspicious for metastatic disease. Largest nodule measured 9 mm in the left lower lobe. There was a 2 cm mass at the left base. This is consistent with a focal lymph node. There is a second similar-appearing paraesophageal density measuring 15 mm on image 17/206. There is also a 9 mm paraesophageal lymph node. These are all suspicious for metastatic disease. There is left hydronephrosis and the left renal pelvis is markedly dilated. Left ureter is tortuous and dilated. There is a left ureteral stent in place. The proximal portion of the stent is within the left renal pelvis. The distal portion is retracted into the left ureter at the level of S2 approximately 10 cm proximal to the left ureterovesical junction. There is extensive retroperitoneal and para-aortic lymphadenopathy. There is retrocrural para-aortic adenopathy. There is a 14 mm left iliac chain node. Iliac chains are otherwise negative. I discussed with Joshua going to the operating room tomorrow to attempt to exchange the left ureteral stent. I am not certain that we have a stent they will be long and we may end up simply removing the stent and requesting placement of a left nephrostomy tube to unblock the kidney. The NCCN guidelines for the treatment of ureteral carcinoma indicate that the patient should also have a bone scan. He should have a dedicated CT of the chest with contrast. With evidence of metastatic disease he should undergo systemic chemotherapy and he will need referral to the cancer center. I spoke with a colleague at the [facility] who agrees that nephroureterectomy is now not the right option. Either stent replacement or nephrostomy tube to drain the left kidney would be the right thing to do with chemotherapy. We will then see how he does. We do not currently have interventional radiology available at [facility] until sometime next week. I plan to take him to the operating room for cystoscopy and attempted left stent replacement or removal. We discussed the procedure and risks and he agrees to proceed. He signed consent forms obtained. Will then attempt to control any remaining pain, work on nutrition and make an urgent referral to medical oncology. I spent approximately 40 minutes in [id number] consultation with the patient and his family. Time Spent With Patient Time: Total time spent is greater than 50% in coordination of care (as documented) at patient's floor/unit and/or counseling patient: Total time spent with greater than 50% in coordination of care (as documented) at patient's floor/unit and/or counseling patient:: 50 - 70 minutes
[2022-01-28] MEDS: SENNOSIDES 1 TABLET PO SCH (20:08)
[2022-01-28] MEDS: TAMSULOSIN 0.4 MG CAPSULE PO SCH (20:08)
[2022-01-29] MEDS: 0.9 % SODIUM CHLORIDE 10 ML SYRINGE IV SCH ×4 (05:30→23:14)
[2022-01-29] MEDS: HYDROmorphone 0.5 MG/0.5 ML SYRINGE IV PRN (05:43)
[2022-01-29 06:58] LABS: Basophils # (Auto) 0.07 K/mcL (0.00-0.30); Basophils % (Auto) 0.9 % (0.0-2.0); Eosinophils # (Auto) 0.25 K/mcL (0.00-0.70); Eosinophils % (Auto) 3.2 % (0.0-7.0); Hematocrit 34.7 % (40.1-51.0); Lymphocytes # (Auto) 0.83 K/mcL (1.50-4.80); Lymphocytes % (Auto) 10.5 % (15.5-49.0); Mean Cell Volume 85.3 fL (80.0-100.0); Mean Corpuscular HGB Conc 34.6 g/dL (31.0-36.0); Mean Platelet Volume 9.9 fL (7.4-10.4); Monocytes # (Auto) 0.77 K/mcL (0.10-0.90); Monocytes % (Auto) 9.7 % (1.0-12.0); Neutrophils % (Auto) 74.7 % (38.0-78.0); Platelet Count 176 K/mcL (140-440); RBC 4.07 M/mcL (4.63-6.08); Red Cell Distribution Width 12.4 % (11.5-14.5); WBC 7.9 K/mcL (4.5-11.0)
[2022-01-29 07:44] LABS: ALT/SGPT 18 U/L (<40); AST/SGOT 25 U/L (<40); Alkaline Phosphatase 71 U/L (39-117); Bilirubin,Direct 0.3 mg/dL (<0.3); Bilirubin,Total 0.7 mg/dL (0.1-1.0); Blood Urea Nitrogen 17 mg/dL (8-23); Calcium 14.6 mg/dL (8.6-10.4); Carbon Dioxide 22 mmol/L (22-30); Chloride 93 mmol/L (96-108); Glomerular Filtration Rate 44; Glucose 108 mg/dL (70-105); Lactate Dehydrogenase 219 U/L (135-225); Phosphorous 3.3 mg/dL (2.5-4.5); Triglycerides 183 mg/dL (<150); Uric Acid 7.1 mg/dL (2.5-8.0)
[2022-01-29] MEDS ORDERED: LIDOCAINE 2% URO-JET 10 ML JEL.PF.APP UR ONE (09:01)
[2022-01-29] MEDS ORDERED: IOVERSOL 20 ML VIAL IV ONE (09:02)
[2022-01-29] MEDS: ENOXAPARIN 40 MG/0.4 ML SYRINGE SQ SCH (10:16)
[2022-01-29] MEDS: HYDROmorphone 2 MG TABLET PO PRN (11:17)
[2022-01-29] MEDS: DOCUSATE SODIUM 100 MG CAPSULE PO SCH ×2 (11:31→20:39)
[2022-01-29] MEDS: 0.9 % SODIUM CHLORIDE 1,000 ML IV SCH ×2 (11:33→16:51)
[2022-01-29] MEDS ORDERED: PAMIDRONATE 90 MG in 0.9 % SODIUM CHLORIDE 500 ML IV ONE (12:00)
--- NOTE | 2022-01-29 12:41 | Internal Med Progress Note ---
SUBJECTIVE Subjective Patient information: Note initiated : 01/29/22 at 12:34 pm Service Date, if different from initiated Date: [] Patient: Joshua Lynch 77 y/o M admitted on 01/28/22 for N/V. Chief Complaint: [] Interval history: History of present illness: Mr. Lynch is a 77 year old M with a past medical history significant for hypertension, hyperlipidemia, and BPH who presents to the hospital with 2-month history of progressive pain that has now become intractable. The patient states that he has been battling with abdominal and groin discomfort since beginning of December. Unfortunately he was not able to see his primary care physician for some time. He was scheduled to see a software reliability engineer yesterday who advised him to go to the ER for further management and evaluation of his severe pain. Of note, the patient lives alone. He states that there were some nights where he would hope that he would pass away so he would not have to suffer excruciating pain. He had been followed by outpatient urology and was scheduled for debulking surgery in February that was recently moved up to February 06. However on presentation CT abdomen and pelvis revealed extensive metastatic disease. 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 He is not followed up with an oncologist at this time yet. The hospitalist service was asked admit the patient for pain control. 01/29-patient seen in room. Quite anxious. Due for stent exchange today by urology. Per urology discussion and notes patient would require follow-up with oncology/interventional radiology for further management of metastatic urothelial tumor. Currently on aggressive pain management/fentanyl patch/zoledronic acid in the setting of hypercalcemia 14.6 and possible bone metastasis. Sodium 127, creatinine down to 1.5 from 1.7, continue crystalloids. Constitutional Vitals: Vital Signs Temp Pulse Resp BP Pulse Ox O2 Del Method 97.7 F 85 17 129/61 95 01/29/22 11:38 01/29/22 11:38 01/29/22 11:38 01/29/22 11:38 01/29/22 11:38 01/29/22 11:38 Period Temp Pulse Resp BP Sys/Brar Pulse Ox O2 Del Method O2 Flow Rate Last 24 Hr 97.2 F-97.7 F 85-111 14-18 115-149/61-75 94-96 Room Air-Room Air Intake and Output 01/28/22 01/29/22 01/29/22 21:59 05:59 13:59 Intake Total 1017 1399 850 Output Total 900 600 100 Balance 117 799 750 Weight 86.455 kg alert and anxious Nonrebreather Tender abdomen No lymphedema Intake & Output: Intake & Output 01/28/22 01/29/22 01/29/22 21:59 05:59 13:59 Intake Total 1017 1399 850 Output Total 900 600 100 Balance 117 799 750 Weight 86.455 kg Intake: IV 317 979 850 Sodium Chloride 0.9% 1,000 ml @ 317 Wide Open IV BOLUS ONE Rx#: [id number] Lactated Ringers 1,000 ml @ 75 979 850 mls/hr IV .[id number] BRANDO Rx#: [id number] Oral 700 420 Output: Void Amount 900 600 100 Other: Meal Lunch Percent of Meal Consumed 25% Feeding Ability Assist with Tray Set Up Urine Appearance Clear Clear Urine Color Dark Yellow Dark Yellow Bright Yellow Urine Odor Normal Normal # Voids 1 OBJ DATA Labs CBC & Chem 7: 01/29/22 05:32 01/29/22 05:33 Labs: Abnormal Lab Results 01/29/22 01/29/22 01/27/22 05:33 05:32 23:45 RBC 4.07 L Hgb 12.0 L Hct 34.7 L POC Hct MCHC Immature Gran % (Auto) 1.0 H Neut % (Auto) Lymph % (Auto) 10.5 L Lymph # (Auto) 0.83 L [place] # (Auto) Immature Gran # 0.08 H Absolute Neutrophils POC Sodium Sodium 127 L POC Chloride Chloride 93 L POC BUN Creatinine 1.5 H POC Creatinine Glucose 108 H POC Glucose Osmolality Calcium 14.6 H* POC WB Ioniz Calcium Direct Bilirubin 0.3 H Albumin 3.0 L Triglycerides 183 H Urine Ketones 5 A Urine RBC 8 H POC Troponin I 01/27/22 01/27/22 01/27/22 22:22 20:10 19:40 RBC Hgb Hct POC Hct 36.0 L MCHC Immature Gran % (Auto) Neut % (Auto) Lymph % (Auto) Lymph # (Auto) [place] # (Auto) Immature Gran # Absolute Neutrophils POC Sodium 126 L Sodium POC Chloride 95 L Chloride POC BUN 26 H Creatinine POC Creatinine 1.7 H Glucose POC Glucose 133 H Osmolality 273 L Calcium POC WB Ioniz Calcium 1.76 H* Direct Bilirubin Albumin Triglycerides Urine Ketones Urine RBC POC Troponin I 0.01 L 01/27/22 01/27/22 16:06 15:59 RBC 4.53 L Hgb 13.6 L Hct 37.7 L POC Hct 39.0 L MCHC 36.1 H Immature Gran % (Auto) 0.7 H Neut % (Auto) 79.9 H Lymph % (Auto) 9.2 L Lymph # (Auto) 1.00 L [place] # (Auto) 0.95 H Immature Gran # 0.08 H Absolute Neutrophils 8.75 H POC Sodium 125 L Sodium POC Chloride 93 L Chloride POC BUN 24 H Creatinine POC Creatinine 1.7 H Glucose POC Glucose 135 H Osmolality Calcium POC WB Ioniz Calcium 1.89 H* Direct Bilirubin Albumin Triglycerides Urine Ketones Urine RBC POC Troponin I Meds: Medications Albuterol/Ipratropium (Ipratropium/Albuterol 3 Ml Ampul.Neb) 3 ml NEB ONCE PRN PRN Reason: Shortness Of Breath Stop: 01/29/22 23:59 Bisacodyl (Bisacodyl 10 Mg Supp.Rect) 10 mg NH Q2-3DAYS PRN PRN Reason: Constipation Docusate Sodium (Docusate Sodium 100 Mg Capsule) 100 mg PO BID [facility] Last Admin: 01/29/22 11:31 Dose: 100 mg Enoxaparin Sodium (Enoxaparin 40 Mg/0.4 Ml Syringe) 40 mg SQ DAILY [facility] Last Admin: 01/29/22 10:16 Dose: Not Given Fentanyl (Fentanyl 25 Mcg Patch) 25 mcg TOPICAL Q72H [facility] Hydromorphone HCl (Hydromorphone 2 Mg Tablet) 1 mg PO Q4HP PRN; Protocol PRN Reason: Per Pain Protocol Last Admin: 01/29/22 11:17 Dose: 1 mg Levofloxacin (Levaquin) 500 mg in 100 mls @ 100 mls/hr IV PREOP ONE Stop: 01/29/22 15:29 Sodium Chloride (Sodium Chloride 0.9%) 1,000 mls @ 125 mls/hr IV .Q8H [facility] Last Admin: 01/29/22 11:33 Dose: 125 mls/hr Pamidronate Disodium 90 mg/ (Sodium Chloride) 530 mls @ 166 mls/hr IV 1200 ONE Stop: 01/29/22 15:11 Magnesium Hydroxide (Magnesium Hydroxide 30 Ml Oral.Susp) 30 ml PO DAILYP PRN PRN Reason: Constipation Morphine Sulfate (Morphine 4 Mg/Ml Vial) 4 mg IV Q4HP PRN; Protocol PRN Reason: Per Pain Protocol Ondansetron HCl (Ondansetron 4 Mg/2 Ml Vial) 4 mg IV Q6HP PRN PRN Reason: Nausea And Vomiting Scopolamine (Scopolamine 1 Patch Patch) 1 patch TOPICAL PREOP PRN PRN Reason: Nausea And Vomiting Stop: 01/29/22 23:59 Senna (Sennosides 1 Tablet) 2 tab PO HS [facility] Last Admin: 01/28/22 20:08 Dose: 2 tab Sodium Chloride (0.9 % Sodium Chloride 10 Ml Syringe) 10 ml IV Q8 [facility] Last Admin: 01/29/22 05:30 Dose: Not Given Tamsulosin HCl (Tamsulosin 0.4 Mg Capsule) 0.8 mg PO QHS [facility] Last Admin: 01/28/22 20:08 Dose: 0.8 mg A/P Narrative A/P Narrative: * Suprapubic abdominal pain secondary to metastatic tumor versus stent occlusion, urology consulted. Will undergo stent replacement this afternoon * Hypercalcemia of malignancy, crystalloids, bisphosphonates * Urothelial tumor will post hospital follow-up with oncology for further [facility] guidelines. Patient prefers [place] [facility]. Will coordinate scheduling appointment with [place] [facility] prior to discharge * Hematuria likely secondary to urothelial tumor * Hypertension on metoprolol * GERD on PPI * HLD statin Plan * Review postprocedure * [facility] * Pre-existing medical condition management as above * Aggressive pain management * Discharge planning with outpatient follow-up with oncology/urology Time Spent With Patient Time: Total time spent is greater than 50% in coordination of care (as documented) at patient's floor/unit and/or counseling patient:
[2022-01-29] MEDS: morphine 4 MG/ML VIAL IV PRN (12:54)
[2022-01-29] MEDS ORDERED: ZOLEDRONIC ACID/WATER 4 MG/100 ML BAG IV ONE (13:00)
[2022-01-29] MEDS ORDERED: IPRATROPIUM/ALBUTEROL 3 ML AMPUL.NEB NEB PRN ×2 (14:30→15:49)
[2022-01-29] MEDS ORDERED: SCOPOLAMINE 1 PATCH PATCH TOPICAL PRN (14:30)
[2022-01-29] MEDS ORDERED: LEVOFLOXACIN 500 MG/100 ML BAG IV ONE (14:30)
[2022-01-29] MEDS ORDERED: DEXAMETHASONE 10 MG/ML VIAL ONE (15:11)
[2022-01-29] MEDS ORDERED: ONDANSETRON 4 MG/2 ML VIAL ONE (15:11)
[2022-01-29] MEDS ORDERED: LIDOCAINE HCL/PF 100 MG/5 ML SYRINGE IV ONE (15:11)
[2022-01-29] MEDS ORDERED: fentaNYL 100 MCG/2 ML VIAL IV ONE (15:11)
[2022-01-29] MEDS ORDERED: PHENYLephrine 1 MG/10 ML SYRINGE (ANEST) ONE (15:11)
[2022-01-29] MEDS ORDERED: PROPOFOL 200 MG/20 ML VIAL IV ONE (15:11)
[2022-01-29] MEDS ORDERED: KETOROLAC 30 MG/ML VIAL IV PRN (15:49)
[2022-01-29] MEDS ORDERED: NALOXONE HCL 0.4 MG/ML VIAL IV PRN (15:49)
[2022-01-29] MEDS ORDERED: ACETAMINOPHEN 1,000 MG/100 ML BAG IV ONE (15:49)
[2022-01-29] MEDS ORDERED: PROMETHAZINE 25 MG/ML VIAL IV PRN (15:49)
[2022-01-29] MEDS ORDERED: LACTATED RINGERS 250 ML IV PRN (15:49)
[2022-01-29] MEDS ORDERED: LABETALOL 5 MG/ML ML IV PRN (15:49)
[2022-01-29] MEDS ORDERED: ONDANSETRON 4 MG/2 ML VIAL IV PRN (15:49)
[2022-01-29] MEDS ORDERED: fentaNYL 100 MCG/2 ML VIAL IV PRN (15:49)
[2022-01-29] MEDS ORDERED: HYDROmorphone 0.5 MG/0.5 ML SYRINGE IV PRN (15:49)
--- NOTE | 2022-01-29 15:50 | Operative Note ---
Brief Operative Note Date of procedure: 01/29/22 Pre-op diagnosis: Severe left hydronephrosis left distal ureteral tumor, malpo sitioned left s Post-op diagnosis: same Procedure: Cystoscopy, left retrograde pyelogram and left ureteroscopy Grafts/Implants: No Anesthesia: GLMA Findings: Dense tumor in left distal ureter unable to pass semirigid ureteroscope through. Unable to exchange or remove left ureteral stent Complications: none Surgeon: Joey Crespo Estimated blood loss (cc): 5 Specimens Removed/Pathology: none sent Condition: stable Disposition: PACU Operative Note Operative Note: After obtaining informed consent from the patient, he was brought to the operating room was placed upon on the operating table. General anesthesia was provided. He was repositioned into a dorsolithotomy position was prepped and draped in usual sterile fashion. Attention was directed to the urethral meatus where a 21 Belgian cystoscope was passed per urethra. 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 A 0.38 [place] extra-stiff wire was passed through the area of stricture and into the bladder. I removed the cystoscope and dilated the urethra to 26 Belgian using S-curve dilators. I was then easily able to pass the 21 Belgian cystoscope into the bladder. I did not see any evidence of tumor or stone within the bladder. Both right and left ureteral orifices were in the normal anatomic positions. The left ureteral orifice was identified and an attempt was made to pass a 5 Belgian open-end ureteral catheter into the left ureteral orifice and it would not pass. I therefore removed the cystoscope and replaced it with a long semirigid ureteroscope. Under direct vision I was able to manipulate the semirigid ureteroscope until approximately 3 cm distal to the ureteral stent on fluoroscopy. A left retrograde pyelogram was performed that showed a tiny wisp of contrast going towards the stent. I could pass it no further. I was able to pass a Glidewire through the semirigid ureteroscope which appeared to go alongside the stent and into the left kidney but I could not pass the semirigid ureteroscope over the wire due to the denseness of the tumor after making several attempts and not wishing to perforate the ureter I decided to stop I removed the semirigid ureteroscope. The cystoscope was replaced and the bladder was irrigated and drained. The patient was turned to the spine position. He was awakened returned to the recovery in stable condition.
[2022-01-29] MEDS ORDERED: LACTATED RINGERS 1,000 ML IV SCH (16:00)
[2022-01-29] MEDS ORDERED: fentaNYL 25 MCG PATCH TOPICAL SCH (16:00)
--- NOTE | 2022-01-29 17:18 | XRay Report ---
INDICATION: left ureteral stent placement TECHNIQUE: Intraoperative spot films and fluoroscopy utilized by Dr. Crespo. 1.0 minutes fluoroscopy and 17.6 mCi exposure used. Attempted left ureteral stent exchange was unsuccessful. IMPRESSION: Intraprocedural fluoroscopy and spot films Interpreted and Authenticated by: Toan Sheikh 01/29/22
[2022-01-29] MEDS: TAMSULOSIN 0.4 MG CAPSULE PO SCH (20:39)
[2022-01-29] MEDS: SENNOSIDES 1 TABLET PO SCH (20:39)
[2022-01-30] MEDS: morphine 4 MG/ML VIAL IV PRN ×2 (00:53→05:07)
[2022-01-30] MEDS: HYDROmorphone 2 MG TABLET PO PRN ×3 (01:35→19:20)
[2022-01-30] MEDS: 0.9 % SODIUM CHLORIDE 1,000 ML IV SCH ×3 (02:51→17:21)
[2022-01-30] MEDS: 0.9 % SODIUM CHLORIDE 10 ML SYRINGE IV SCH ×2 (04:41→13:31)
[2022-01-30 07:37] LABS: Basophils # (Auto) 0.04 K/mcL (0.00-0.30); Basophils % (Auto) 0.4 % (0.0-2.0); Eosinophils # (Auto) 0.02 K/mcL (0.00-0.70); Eosinophils % (Auto) 0.2 % (0.0-7.0); Hematocrit 36.9 % (40.1-51.0); Hemoglobin 12.6 g/dL (13.7-17.5); Lymphocytes # (Auto) 0.49 K/mcL (1.50-4.80); Lymphocytes % (Auto) 5.4 % (15.5-49.0); Mean Cell Volume 85.2 fL (80.0-100.0); Mean Corpuscular HGB Conc 34.1 g/dL (31.0-36.0); Mean Platelet Volume 9.6 fL (7.4-10.4); Monocytes # (Auto) 0.56 K/mcL (0.10-0.90); Monocytes % (Auto) 6.2 % (1.0-12.0); Neutrophils % (Auto) 86.1 % (38.0-78.0); Platelet Count 204 K/mcL (140-440); RBC 4.33 M/mcL (4.63-6.08); Red Cell Distribution Width 12.3 % (11.5-14.5)
[2022-01-30] MEDS ORDERED: IOPAMIDOL 100 ML BOTTLE IV ONE (07:46)
--- NOTE | 2022-01-30 07:47 | Urology Progress Note ---
SUBJECTIVE Subjective Patient information: Note initiated : 01/30/22 at 7:38 am Service Date, if different from initiated Date: [] Patient: Joshua Lynch 77 y/o M admitted on 01/28/22 for N/V. 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 CT scan in late December showed no evidence of metastasis. Recent CT scan on admission showed what appeared to be widespread metastatic disease. The patient is having severe intractable pain. I previously placed a left ureteral stent to drain the left kidney. Due to the severe hydronephrosis and tortuosity of the left ureter the stent was pulled into the left mid ureter and is no longer draining. I took her to the operating room yesterday afternoon to try to remove or replace the stent however the tumor was so dense I was unable to pass my scope through the area of tumor to the stent. The stent remains in place. The patient continues to have intractable pain. Dedicated CT of the chest with contrast was obtained this morning and has not yet been read. Constitutional Vitals: Vital Signs Temp Pulse Resp BP Pulse Ox O2 Del Method O2 Flow Rate 97.9 F 97 H 14 152/83 95 6 01/30/22 06:46 01/30/22 06:46 01/30/22 06:46 01/30/22 06:46 01/30/22 06:46 01/30/22 06:46 01/29/22 16:11 Period Temp Pulse Resp BP Sys/Brar Pulse Ox O2 Del Method O2 Flow Rate Last 24 Hr 97.1 F-98.0 F 85-105 12-17 129-166/49-83 93-100 Room Air-Room Air 6-6 Intake and Output 01/29/22 01/30/22 01/30/22 21:59 05:59 13:59 Intake Total 1457 1100 Output Total 600 875 200 Balance 857 225 -200 Weight 88.632 kg Intake & Output: Intake & Output 01/29/22 01/30/22 01/30/22 21:59 05:59 13:59 Intake Total 1457 1100 Output Total 600 875 200 Balance 857 225 -200 Weight 88.632 kg Intake: IV 777 1000 Sodium Chloride 0.9% 1,000 ml @ 577 1000 125 mls/hr IV .Q8H [facility] Rx#: [id number] Oral 180 100 IV - Manual Only 500 Output: Void Amount 600 875 200 Other: Meal Dinner Percent of Meal Consumed 50% Feeding Ability Independent Urine Appearance Clear Clear Urine Color Bright Yellow Bright Yellow Urine Odor Normal Normal General appearance: average body habitus and moderate distress Head Head exam: Present atraumatic, normal inspection and normocephalic Respiratory Respiratory exam: Present normal respiratory exam Cardiovascular Cardiovascular exam: Present normal rate and rhythm A/P Assessment and plan (1) Metastatic urothelial carcinoma: Status: Acute (2) Ureteral cancer: Status: Acute (3) Suprapubic pain: Status: Acute (4) Cancer associated pain: Status: Acute (5) Hydronephrosis of left kidney: Status: Acute Narrative A/P Narrative: Is a 77-year-old male with what appears to be metastatic urothelial carcinoma arising from the left distal ureter. CT scan in late December did not reveal any evidence of metastatic disease and the patient was scheduled for a left nephro ureterectomy that was to be performed next week on February 06. The patient had complete obstruction of the left kidney and a left ureteral stent was previously placed by me. Due to the significant hydronephrosis and tortuosity of the left ureter the stent pulled into the mid left ureter and is no longer draining. I made an attempt to exchange or remove the stent yesterday but I was unable to get through the tumor to the level of the stent. The stent remains in place. The patient currently has intractable pain that is difficult to control. The pain is suprapubic towards the left side. The pain is not in the left flank. We discussed that the pain may simply be due to the metastatic cancer or it may be due to obstruction of the left kidney. While previously I was against placing a left nephrostomy tube due to the risk of causing metastatic disease at this point with evidence of widespread metastasis I do not think that this is an issue and I feel that an attempt should be made to place a left nephrostomy tube to unblock the left kidney to see if that helps relieve his pain. If the left nephrostomy tube does not help relieve his pain then the pain is likely secondary to the cancer itself. Due to the cancer with widespread metastatic disease I believe that the patient is no longer a candidate for left nephro ureterectomy but instead needs to start on cisplatin-based chemotherapy urgently. We do not have oncology at our hospital. We also do not have interventional radiology. From what I understand [facility] in [place] has oncology but they do not currently have interventional radiology as their interventional radiologist is out of town until February 02. I believe that the patient would benefit from transfer to a center that has inpatient medical oncology, and inpatient medical service, interventional radiology, and urology. I have asked our household appliance repairer to begin working on this today. I discussed this with the patient and his family. We also previously discussed that in addition to the CT he had them this morning the patient will need a bone scan to evaluate for bony metastatic disease. We also do not have nuclear medicine at our hospital. Time Spent With Patient Time: Total time spent is greater than 50% in coordination of care (as documented) at patient's floor/unit and/or counseling patient: Total time spent with greater than 50% in coordination of care (as documented) at patient's floor/unit and/or counseling patient:: 35 - 50 minutes
[2022-01-30 08:25] LABS: ALT/SGPT 21 U/L (<40); AST/SGOT 28 U/L (<40); Albumin 3.4 gm/dL (3.2-5.2); Albumin/Globulin Ratio 1.1 (1.0-2.3); Alkaline Phosphatase 76 U/L (39-117); Bilirubin,Direct 0.3 mg/dL (<0.3); Bilirubin,Total 0.8 mg/dL (0.1-1.0); Blood Urea Nitrogen 17 mg/dL (8-23); Calcium 14.3 mg/dL (8.6-10.4); Carbon Dioxide 21 mmol/L (22-30); Chloride 93 mmol/L (96-108); Globulin 3.1 gm/dL (2.2-3.7); Glomerular Filtration Rate 44; Glucose 102 mg/dL (70-105); Lactate Dehydrogenase 257 U/L (135-225); Phosphorous 2.4 mg/dL (2.5-4.5); Triglycerides 135 mg/dL (<150); Uric Acid 7.4 mg/dL (2.5-8.0)
[2022-01-30] MEDS ORDERED: HYDROmorphone 0.5 MG/0.5 ML SYRINGE IV PRN (08:47)
--- NOTE | 2022-01-30 09:31 | Transfer Summary ---
Discharge Provider Provider IMPORTANT FOLLOW-UP INFORMATION FOR PCP: Patient information: Note initiated : 01/30/22 at 9:24 am Service Date, if different from initiated Date: [] Patient: Joshua Lynch 77 y/o M admitted on 01/28/22 for N/V. Chief Complaint: [] Date of admission: 01/28/22 07:43 Discharge date: 01/30/22 Primary care physician: Toan Hines, Consults: 01/27/22 Consult to Physician [CONS] Stat Comment: Consulting Provider: Allan Anderson Reason For Exam: Physician to Consult 01/28/22 15:25 Consult to Physician [CONS] Routine Comment: Consulting Provider: Joey Crespo Reason For Exam: Physician to Consult COURSE Hospital Course Hospital course: Transfer diagnosis * Obstructive uropathy with ROB, stent exchange/removal could not be accomplished. Urology recommends percutaneous nephrostomy by IR. Patient transferring to [facility] * Abdominal pain secondary to metastatic tumor versus obstructive uropathy. Coordinating tertiary center transfer, continue opioids * Hypercalcemia of malignancy, continue crystalloids, bisphosphonates, calcium down from 14.6-14.3 * Urothelial tumor with metastasis confirmed on tissue biopsy December 31. * Hypertension managed on metoprolol * GERD on PPI * HLD statin Brief hospital course Mr. Lynch is a 77 year old M with a past medical history significant for hypertension, hyperlipidemia, and BPH who presents to the hospital with 2-month history of progressive pain that has now become intractable. The patient states that he has been battling with abdominal and groin discomfort since beginning of December. Unfortunately he was not able to see his primary care physician for some time. He was scheduled to see a fur joiner yesterday who advised him to go to the ER for further management and evaluation of his severe pain. Of note, the patient lives alone. He states that there were some nights where he would hope that he would pass away so he would not have to suffer excruciating pain. He had been followed by outpatient urology and was scheduled for debulking surgery in February that was recently moved up to February 06. However on presentation CT abdomen and pelvis revealed extensive metastatic disease. 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 He is not followed up with an oncologist at this time yet. The hospitalist service was asked admit the patient for pain control. 01/29-patient seen in room. Quite anxious. Due for stent exchange today by urology. Per urology discussion and notes patient would require follow-up with oncology/interventional radiology for further management of metastatic urothelial tumor. Currently on aggressive pain management/fentanyl patch/zoledronic acid in the setting of hypercalcemia 14.6 and possible bone metastasis. Sodium 127, creatinine down to 1.5 from 1.7, continue crystalloids. 01/30-patient continues to experience abdominal pain. Underwent cystoscopy with left retrograde pyelogram and ureteroscopy however exchange or removal left ureteral stent could not be accomplished. Patient continued overnight on opioids. Urology recommends percutaneous nephrostomy placement/oncology follow- up and transfer to tertiary center. Coordination underway. Case discussed at multiple hospitals including [facility] [place], [facility], [facility]. No beds available at this time. Continuing antibiotics. Unlikely that the patient be transferred in the next 24 hours. [facility] helpline coordinating transfer. Patient accepted at [facility], accepting physician Dr. Osborn hospitalist. Discharge diagnosis: Obstructive uropathy secondary to meta stasis Time Spent with Patient Time attestation: Total time spent providing and/or coordinating discharge services: Time spent: Greater than 30 minutes EXAM Constitutional Vitals: Temp Pulse Resp BP Pulse Ox O2 Del Method O2 Flow Rate 97.9 F 97 H 14 152/83 95 6 01/30/22 06:46 01/30/22 06:46 01/30/22 06:46 01/30/22 06:46 01/30/22 06:46 01/30/22 06:46 01/29/22 16:11 Discharge Data Data Completed and Pending Labs on day of discharge: Labs from last 24 hours 01/30/22 01/30/22 05:35 05:35 WBC 9.0 RBC 4.33 L Hgb 12.6 L Hct 36.9 L MCV 85.2 MCH 29.1 MCHC 34.1 RDW 12.3 Plt Count 204 MPV 9.6 Immature Gran % (Auto) 1.7 H Neut % (Auto) 86.1 H Lymph % (Auto) 5.4 L Haines % (Auto) 6.2 Eos % (Auto) 0.2 Baso % (Auto) 0.4 Lymph # (Auto) 0.49 L Haines # (Auto) 0.56 Eos # (Auto) 0.02 Baso # (Auto) 0.04 Immature Gran # 0.15 H Absolute Neutrophils 7.93 Sodium 128 L Potassium 3.8 Chloride 93 L Carbon Dioxide 21 L Anion Gap 14.0 BUN 17 Creatinine 1.5 H GFR Calculation 44 Glucose 102 Uric Acid 7.4 Calcium 14.3 H* Phosphorus 2.4 L Magnesium 1.8 Total Bilirubin 0.8 Direct Bilirubin 0.3 H GGT 43 AST 28 ALT 21 Alkaline Phosphatase 76 Lactate Dehydrogenase 257 H Total Protein 6.5 Albumin 3.4 Globulin 3.1 Albumin/Globulin Ratio 1.1 Triglycerides 135 Discharge Plan Patient/Caregiver Discharge Instructions Activity: other Diet: Regular Diet Instructions: Constipation (DC), Pain Management (ED), Acute Nausea and Vomiting (ED), Opioid Safety (ED) Prescriptions: New fentanyl 25 mcg/hr patch 72 hour 1 patch transdermal Q72H Qty: 5 0RF hydrocodone-acetaminophen 5-325 mg tablet 1 tab PO Q4H PRN (Reason: pain) Qty: 30 0RF Rx Instructions: Take 1-2 tabs every 4 hours for breakthrough pain No Action simvastatin 10 mg tablet 10 mg PO QHS Qty: 90 3RF omeprazole 20 mg capsule,delayed release(DR/EC) 20 mg PO QAM Qty: 90 3RF metoprolol tartrate 25 mg tablet 25 mg PO BID Qty: 180 3RF hydrocodone-acetaminophen 10-325 mg tablet 1 tab PO Q6H PRN (Reason: pain) Qty: 12 0RF multivitamin tablet 1 tab-cap PO QDAY cetirizine [24Hour Allergy] 1 tab PO QDAY tamsulosin 0.4 mg capsule 0.8 mg PO QHS Qty: 180 1RF magnesium Tablet 1 tab PO DAILY alpha lipoic acid 600 mg Capsule 600 mg PO QAM Excedrin Extra Strength 250-250-65 mg Tablet 1 tab PO ONCE PRN (Reason: HEADACHES) Follow Up Plan Follow up with: Toan Hines DO [Primary Care Provider] - Patient Disposition: [facility] Prognosis: Serious Rehab Potential: Serious I certify that the patient requires SNF services: No Overall status at discharge: patient is not back to baseline Discharge Orders: Discharge Order (Routine); Ordered 01/30/22 Ordered By: Florian Jenkins Discharge Comment: D/C'd to [facility].
[2022-01-30] MEDS: ENOXAPARIN 40 MG/0.4 ML SYRINGE SQ SCH (10:39)
[2022-01-30] MEDS: DOCUSATE SODIUM 100 MG CAPSULE PO SCH (10:39)
--- NOTE | 2022-01-30 13:02 | Cat Scan Report ---
INDICATION: diagnostic COMPARISON: FINDINGS: Axial contrast enhanced CT of the chest with coronal and sagittal reformats using nonionic low osmolar intravenous contrast. There are several prominent mediastinal lymph nodes. The largest is subcarinal measuring 3.1 x 1.8 cm. There is also noted adjacent to the distal esophagus measuring up to 1.3 cm. Several other smaller and similarly sized lymph nodes are seen. No evidence of pericardial effusion. Small bilateral pleural effusions are noted with adjacent atelectasis. Multiple small subcentimeter pulmonary nodules are seen bilaterally. The largest is in the left lower lobe measuring 8 mm. Limited imaging of the upper abdomen shows steatosis of the liver. There is dependently layering gallbladder sludge. No acute bony findings IMPRESSION: Nonspecific mediastinal adenopathy and multiple bilateral pulmonary nodules. Follow-up is recommended. Small bilateral pleural effusions with mild atelectasis. Other observations as above Interpreted and Authenticated by: Jose Rafael Rojas M.D. 01/30/22
[2022-01-30] MEDS ORDERED: PROMETHAZINE 25 MG/ML VIAL IV PRN (15:55)
[2022-01-30] MEDS ORDERED: ONDANSETRON 4 MG/2 ML VIAL IV PRN (15:55)
--- NOTE | 2022-01-30 17:05 | Internal Med Progress Note ---
SUBJECTIVE Subjective Patient information: Note initiated : 01/30/22 at 5:03 pm Service Date, if different from initiated Date: [] Patient: Joshua Lynch 77 y/o M admitted on 01/28/22 for N/V. 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 Lynch is a 77 year old M with a past medical history significant for hypertension, hyperlipidemia, and BPH who presents to the hospital with 2-month history of progressive pain that has now become intractable. The patient states that he has been battling with abdominal and groin discomfort since beginning of December. Unfortunately he was not able to see his primary care physician for some time. He was scheduled to see a feedmobile driver yesterday who advised him to go to the ER for further management and evaluation of his severe pain. Of note, the patient lives alone. He states that there were some nights where he would hope that he would pass away so he would not have to suffer excruciating pain. He had been followed by outpatient urology and was scheduled for debulking s urgery in February that was recently moved up to February 06. However on presentation CT abdomen and pelvis revealed extensive metastatic disease. 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 He is not followed up with an oncologist at this time yet. The hospitalist service was asked admit the patient for pain control. 01/29-patient seen in room. Quite anxious. Due for stent exchange today by urology. Per urology discussion and notes patient would require follow-up with oncology/interventional radiology for further management of metastatic urothelial tumor. Currently on aggressive pain management/fentanyl patch/zoledronic acid in the setting of hypercalcemia 14.6 and possible bone metastasis. Sodium 127, creatinine down to 1.5 from 1.7, continue crystalloids. 01/30-patient continues to experience abdominal pain. Underwent cystoscopy with left retrograde pyelogram and ureteroscopy however exchange or removal left ureteral stent could not be accomplished. Patient continued overnight on opioids. Calcium down from 14.6-14.3 urology recommends percutaneous nephros maxx placement/oncology follow-up and transfer to tertiary center. Coordination underway. Case discussed at multiple hospitals including [facility], [facility], [facility]. No beds available at this time. Continuing antibiotics. Unlikely that the patient be transferred in the next 24 hours. [facility] helpline coordinating transf er. Constitutional Vitals: Vital Signs Temp Pulse Resp BP Pulse Ox O2 Del Method O2 Flow Rate 98.2 F 107 H 14 151/79 92 6 01/30/22 15:31 01/30/22 15:31 01/30/22 15:31 01/30/22 15:31 01/30/22 15:31 01/30/22 15:31 01/29/22 16:11 Period Temp Pulse Resp BP Sys/Brar Pulse Ox O2 Del Method O2 Flow Rate Last 24 Hr 97.3 F-98.2 F 90-107 14-18 131-165/49-83 92-97 Room Air-Room Air Intake and Output 01/30/22 01/30/22 01/30/22 05:59 13:59 21:59 Intake Total 1100 1000 250 Output Total 875 350 Balance 225 650 250 Weight 88.904 kg Patient Weight 01/31/22 05:59 Weight 88.904 kg Anxious Nonlabored breathing Distress Tender abdomen Intake & Output: Intake & Output 01/30/22 01/30/22 01/30/22 05:59 13:59 21:59 Intake Total 1100 1000 250 Output Total 875 350 Balance 225 650 250 Weight 88.904 kg Intake: IV 1000 1000 Sodium Chloride 0.9% 1,000 ml @ 1000 1000 125 mls/hr IV .Q8H [facility] Rx#: [id number] Oral 100 250 Output: Void Amount 875 350 Other: Meal Lunch Percent of Meal Consumed 25% Feeding Ability Independent Urine Appearance Clear Clear Urine Color Bright Yellow Bright Yellow Urine Odor Normal Normal OBJ DATA Labs CBC & Chem 7: 01/30/22 05:35 01/30/22 05:35 Labs: Abnormal Lab Results 01/30/22 01/30/22 01/29/22 05:35 05:35 05:33 RBC 4.33 L Hgb 12.6 L Hct 36.9 L POC Hct Immature Gran % (Auto) 1.7 H Neut % (Auto) 86.1 H Lymph % (Auto) 5.4 L Lymph # (Auto) 0.49 L Immature Gran # 0.15 H POC Sodium Sodium 128 L 127 L POC Chloride Chloride 93 L 93 L Carbon Dioxide 21 L POC BUN Creatinine 1.5 H 1.5 H POC Creatinine Glucose 108 H POC Glucose Osmolality Calcium 14.3 H* 14.6 H* POC WB Ioniz Calcium Phosphorus 2.4 L Direct Bilirubin 0.3 H 0.3 H Lactate Dehydrogenase 257 H Albumin 3.0 L Triglycerides 183 H Urine Ketones Urine RBC POC Troponin I 01/29/22 01/27/22 01/27/22 05:32 23:45 22:22 RBC 4.07 L Hgb 12.0 L Hct 34.7 L POC Hct 36.0 L Immature Gran % (Auto) 1.0 H Neut % (Auto) Lymph % (Auto) 10.5 L Lymph # (Auto) 0.83 L Immature Gran # 0.08 H POC Sodium 126 L Sodium POC Chloride 95 L Chloride Carbon Dioxide POC BUN 26 H Creatinine POC Creatinine 1.7 H Glucose POC Glucose 133 H Osmolality Calcium POC WB Ioniz Calcium 1.76 H* Phosphorus Direct Bilirubin Lactate Dehydrogenase Albumin Triglycerides Urine Ketones 5 A Urine RBC 8 H POC Troponin I 01/27/22 01/27/22 20:10 19:40 RBC Hgb Hct POC Hct Immature Gran % (Auto) Neut % (Auto) Lymph % (Auto) Lymph # (Auto) Immature Gran # POC Sodium Sodium POC Chloride Chloride Carbon Dioxide POC BUN Creatinine POC Creatinine Glucose POC Glucose Osmolality 273 L Calcium POC WB Ioniz Calcium Phosphorus Direct Bilirubin Lactate Dehydrogenase Albumin Triglycerides Urine Ketones Urine RBC POC Troponin I 0.01 L Meds: Medications Bisacodyl (Bisacodyl 10 Mg Supp.Rect) 10 mg SC Q2-3DAYS PRN PRN Reason: Constipation Docusate Sodium (Docusate Sodium 100 Mg Capsule) 100 mg PO BID [facility] Last Admin: 01/30/22 10:39 Dose: 100 mg Enoxaparin Sodium (Enoxaparin 40 Mg/0.4 Ml Syringe) 40 mg SQ DAILY [facility] Last Admin: 01/30/22 10:39 Dose: 40 mg Fentanyl (Fentanyl 25 Mcg Patch) 25 mcg TOPICAL Q72H [facility] Last Admin: 01/29/22 16:54 Dose: 25 mcg Hydromorphone HCl (Hydromorphone 2 Mg Tablet) 1 mg PO Q4HP PRN; Protocol PRN Reason: Per Pain Protocol Last Admin: 01/30/22 07:54 Dose: 1 mg Hydromorphone HCl (Hydromorphone 0.5 Mg/0.5 Ml Syringe) 0.5 - 1 mg IV Q4HP PRN; Protocol PRN Reason: Per Pain Protocol Last Admin: 01/30/22 09:28 Dose: 0.5 mg Sodium Chloride (Sodium Chloride 0.9%) 1,000 mls @ 125 mls/hr IV .Q8H [facility] Last Admin: 01/30/22 12:50 Dose: 125 mls/hr Magnesium Hydroxide (Magnesium Hydroxide 30 Ml Oral.Susp) 30 ml PO DAILYP PRN PRN Reason: Constipation Ondansetron HCl (Ondansetron 4 Mg/2 Ml Vial) 4 mg IV Q4HP PRN PRN Reason: Nausea And Vomiting Promethazine HCl (Promethazine 25 Mg/Ml Vial) 12.5 mg IV Q6HP PRN PRN Reason: Nausea And Vomiting Last Admin: 01/30/22 16:11 Dose: 12.5 mg Senna (Sennosides 1 Tablet) 2 tab PO HS [facility] Last Admin: 01/29/22 20:39 Dose: 2 tab Sodium Chloride (0.9 % Sodium Chloride 10 Ml Syringe) 10 ml IV Q8 [facility] Last Admin: 01/30/22 13:31 Dose: Not Given Tamsulosin HCl (Tamsulosin 0.4 Mg Capsule) 0.8 mg PO QHS [facility] Last Admin: 01/29/22 20:39 Dose: 0.8 mg A/P Narrative A/P Narrative: * Obstructive uropathy with ROB, stent exchange/removal could not be accomplished. Urology recommends percutaneous nephrostomy by IR. Patient to be transferred to tertiary center pending availability of bed * Abdominal pain secondary to metastatic tumor infiltration versus obs tructive uropathy. continue opioids * Hypercalcemia of malignancy, continue crystalloids, bisphosphonates, calcium down from 14.6-14.3 * Urothelial tumor with metastasis confirmed on tissue biopsy December 31. Managed by urology * Hypertension stable on metoprolol * GERD on PPI * HLD statin Plan * Review postprocedure * Schedule follow-up with [facility] oncology * Pre-existing medical condition management as above * Aggressive pain management * Discharge planning with outpatient follow-up with oncology/urology Time Spent With Patient Time: Total time spent is greater than 50% in coordination of care (as documented) at patient's floor/unit and/or counseling patient:
== END 2022-01-30 20:20 | disposition short-term general hospital (02) | DRG 694 ==
LOC: ED 15:21 → MEDSUR 15:21
PROVIDERS: ADMIT Student in an Organized Health Care Education/Training Program; ATTEND Internal Medicine